=== PATIENT | female | born 1995 | race Caucasian/White ===

== ENCOUNTER 2021-06-13 00:06 | Emergency (ER) | payer OTHER ==
[~2021-06-13 00:06] MED LIST: VOLTAREN **OUT75 MG PO
== END 2021-06-13 02:15 | disposition home or self-care (01) ==
LOC: FER 00:06
DX: S61.212A Laceration without foreign body of right middle finger without damage to nail, initial encounter (principal); K64.4 Residual hemorrhoidal skin tags; F17.200 Nicotine dependence, unspecified, uncomplicated; Z23 Encounter for immunization; X58.XXXA Exposure to other specified factors, initial encounter; Y92.009 Unspecified place in unspecified non-institutional (private) residence as the place of occurrence of the external cause
CPT/HCPCS: 90471; 90715